=== PATIENT | female | born 1960 | race Caucasian/White ===

== ENCOUNTER 2018-07-06 08:24 | Emergency (ER) | payer OTHER, MEDICAID ==
--- NOTE | 2018-07-06 09:03 | EDPHY ---
HPI/HX/ROS/PE/MDM Narrative: CHIEF COMPLAINT: Difficulty swallowing HPI: The patient is a 57 y/o female with a history of infantile cerebral palsy, a goiter, colitis, and diabetes complaining of difficulty swallowing and pain in the goiter. This morning, she was unable eat cream of wheat for breakfast. She could swallow it but then would choke and spit it up. She is able to keep liquids down. She reports associated pain in the midline of the goiter. She denies any other associated symptoms. She has had similar episodes previously that resolved in a couple minutes. REVIEW OF SYSTEMS: Aside from elements discussed in the HPI, a comprehensive 10-point review of systems was reviewed and is negative. PMH: Infantile cerebral palsy, goiter, diabetes, scoliosis, osteoporosis, colitis SOCIAL HISTORY: Lives in [place], lives with her brother, brother at bedside PHYSICAL EXAM: General:Patient is alert, in no acute distress. ENT:Eyes are normal to inspection. ENT inspection normal. Neck: Large bilateral goiter. Full range of motion. Respiratory:No respiratory distress. Breath sounds normal bilaterally. Cardiovascular: Regular rate and rhythm. Strong peripheral pulses. Normal cap refill. Abdomen:The abdomen is nontender to palpation. There are no peritoneal signs. There are normal bowel sounds. Back: Normal to inspection. No tenderness to palpation. Skin: Normal color. No rash. Warm and dry. Extremities: Normal appearance. Full range of motion. Neuro: Oriented x3. Normal motor function. Normal sensory function. ED Course: Study: CT of the esophagus Indication: Inability to eat, large goiter Results: CT scan of the esophagus was obtained. The results of the study are: Large goiter compressing the esophagus, ascending aortic aneurysm The study was read by the radiologist, Dr. Santana. I viewed the images myself on the PACS system. The patient has a history of a goiter and presents with difficulty swallowing. She is able to swallow her food but chokes it back up. She is able to keep liquids down. She has associated pain in the midline of the goiter. Plan for CBC , basic metabolic panel, and CT of the neck. 11:00 AM - CT indicates the goiter is compressing the esophagus. She also has an ascending aortic aneurysm. I spoke with the family regarding the results of the imaging. Their family doctor has been following the goiter but no testing has been done on it previously. They were unaware of the aortic aneurysm. ENT paged to consult. 11:15 AM - I spoke with Shonna RICHARDSON, ENT. She will review the case and consult with Dr. Bansal regarding the treatment plan. 12:30 PM - Dr. Bansal spoke with the patient and her family. They will see him in his office tomorrow. She can safely return home at this time. Follow-up instructions and return precautions given. - Data Points Imaging Results: Imaging Impressions Neck CT 07/06/18 09:06 Impression: 1. Ascending aortic aneurysm. 2. Multinodular goiter causing esophageal compression at the thoracic inlet. Results called to Dr. Magen Mo at 11:00 AM General information for patients regarding this examination can be found at [email or web address] If you have questions or comments about this report, please contact me at (hospital) or [phone] (cell). Laboratory Results: Laboratory Results 07/06/18 09:10 07/06/18 09:10 07/06/18 07/06/18 09:10 09:10 WBC 11.00 10^3/uL H 10^3/uL (3.80-9.50) RBC 3.52 10^6/uL L 10^6/uL (4.18-5.33) Hgb 10.4 g/dL L g/dL (12.6-16.3) Hct 30.8 % L % (38.0-47.0) MCV 87.5 fL fL (81.5-99.8) MCH 29.5 pg pg (27.9-34.1) MCHC 33.8 g/dL g/dL (32.4-36.7) RDW 15.7 % H % (11.5-15.2) Plt Count 546 10^3/uL H 10^3/uL (150-400) MPV 8.8 fL fL (8.7-11.7) Neut % (Auto) 56.5 % % (39.3-74.2) Lymph % (Auto) 33.1 % % (15.0-45.0) Russell % (Auto) 9.5 % % (4.5-13.0) Eos % (Auto) 0.0 % L % (0.6-7.6) Baso % (Auto) 0.6 % % (0.3-1.7) Nucleat RBC Rel Count 0.0 % % (0.0-0.2) Absolute Neuts (auto) 6.21 10^3/uL 10^3/uL (1.70-6.50) Absolute Lymphs (auto) 3.64 10^3/uL H 10^3/uL (1.00-3.00) Absolute Monos (auto) 1.05 10^3/uL H 10^3/uL (0.30-0.80) Absolute Eos (auto) 0.00 10^3/uL L 10^3/uL (0.03-0.40) Absolute Basos (auto) 0.07 10^3/uL 10^3/uL (0.02-0.10) Absolute Nucleated RBC 0.00 10^3/uL 10^3/uL (0-0.01) Immature Gran % 0.3 % % (0.0-1.1) Immature Gran # 0.03 10^3/uL 10^3/uL (0.00-0.10) Sodium 137 mEq/L mEq/L (135-145) Potassium 4.6 mEq/L mEq/L (3.3-5.0) Chloride 104 mEq/L mEq/L (97-110) Carbon Dioxide 23 mEq/l mEq/l (22-31) Anion Gap 10 mEq/L mEq/L (6-14) BUN 11 mg/dL mg/dL (7-23) Creatinine 0.4 mg/dL L mg/dL (0.6-1.0) Estimated GFR > 60 Glucose 103 mg/dL H mg/dL (70-100) Calcium 8.7 mg/dL mg/dL (8.5-10.4) General Time Seen by Provider: 07/06/18 08:51 Initial Vital Signs: Initial Vital Signs Temperature (C) 36.7 C 07/06/18 08:34 Heart Rate 81 07/06/18 08:34 Respiratory Rate 16 07/06/18 08:34 Blood Pressure 129/88 H 07/06/18 08:34 O2 Sat (%) 97 07/06/18 08:34 O2 Delivery Mode Room Air Allergies/Adverse Reactions: codeine Allergy (Verified 07/06/18 08:31) Home Medications: Medication Instructions Recorded Citalopram 07/06/18 Clonazepam 07/06/18 Insulin Lispro 07/06/18 Januvia 50 mg 07/06/18 Metformin 1000 mg 07/06/18 Synthroid 07/06/18 Departure - Departure Disposition: Home, Routine, Self-Care Clinical Impression: goiter compressing esophagus, Goiter, Compression, esophagus, Ascending aortic aneurysm Condition: Good Instructions: Thoracic Aortic Aneurysm (ED), Thyroid Goiter (ED) Additional Instructions: 1. Please see Dr. Bansal at his office tomorrow as planned. 2. Return to the emergency department for any worsening of condition. Referrals: ALEXIS JENKINS [Other] - As per Instructions Magen Bansal MD [Medical Doctor] - As per Instructions Report Scribed for: Magen Mo Report Scribed by: Samantha Pedroza Date of Report: 07/06/18 Time of Report: 09:05 Physician Review and Approval Statement: Portions of this note were transcribed by an ED scribe. I personally performed the history, physical exam, and medical decision making; and confirm the accuracy of the information in the transcribed note.
[2018-07-06 09:17] LABS: PLATELET COUNT 546 10^3/uL (150-400)
[2018-07-06] MEDS ORDERED: IOPAMIDOL (ISOVUE-300) 100 ML BTL ONE (09:31)
[2018-07-06] MEDS ORDERED: DEXAMETHASONE 10 MG/ML VIAL IVP ONE (12:51)
[2018-07-06] MEDS ORDERED: DEXAMETHASONE 4 MG/ML VIAL ONE (13:01)
[2018-07-06 13:16] VITALS: BP 135/77
== END 2018-07-06 13:15 | disposition home or self-care (01) ==
DX: E04.2 Nontoxic multinodular goiter (principal); I71.2 Thoracic aortic aneurysm, without rupture; G80.9 Cerebral palsy, unspecified; E11.9 Type 2 diabetes mellitus without complications; Z79.899 Other long term (current) drug therapy
CPT/HCPCS: 70491; 96374; 99285; J1100; Q9967

== ENCOUNTER 2018-10-01 08:15 | Inpatient (IN) | payer OTHER, MEDICAID ==
[2018-10-23] MEDS ORDERED: DEXAMETHASONE 10 MG/ML VIAL IVP ONE (08:31)
[2018-10-23] MEDS ORDERED: ceFAZolin 2 GM/DEXTROSE 100 ML IV ONE (08:31)
[2018-10-23] MEDS ORDERED: LIDOCAINE 1% 2 ML INJ ID PRN (08:44)
[2018-10-23] MEDS ORDERED: LR 1,000 ML IV ONE (08:44)
--- NOTE | 2018-10-23 09:06 | POSTANESTH ---
Post Anesthetic Evaluation Cardiovascular Status: Normal, Stable Respiratory Status: Other, See Comment (Stridor initially that responded well to racemic epinephrine, SpO2 always > 92%) Level of Consciousness/Mental Status: Moderately Sleepy, Other, See Comment (Pt delayed.)
--- NOTE | 2018-10-23 09:10 | PDANEPAE ---
ANE History of Present Illness 57 yo female with goiter for total thyroidectomy. ANE Past Medical History - Cardiovascular History Hx Hypertension: No Hx Arrhythmias: No Hx Chest Pain: No Hx Coronary Artery / Peripheral Vascular Disease: No Hx CHF / Valvular Disease: No Hx Palpitations: No Cardiovascular History Comment: ascending aortic aneurysm - incidential finding on CT - Pulmonary History Hx COPD: No Hx Asthma/Reactive Airway Disease: No Hx Recent Upper Respiratory Infection: No Hx Oxygen in Use at Home: No Hx Sleep Apnea: No Sleep Apnea Screening Result - Last Documented: Negative - Neurologic History Hx Cerebrovascular Accident: No Hx Seizures: No Hx Dementia: No - Endocrine History Hx Diabetes: Yes Hypothyroid: Yes Hyperthyroid: No Obesity: no Endocrine History Comment: type 2 DM. multinodular goiter compressing esophagus - Renal History Hx Renal Disorders: No - Liver History Hx Hepatic Disorders: No - Neurological & Psychiatric Hx Hx Neurological and Psychiatric Disorders: Yes Neurological / Psychiatric History Comment: tremor. OCD. cerebral palsy/ developmental delay - Cancer History Hx Cancer: No - Congenital Disorder History Hx Congenital Disorders: Yes Congenital History Comment: thyroid issues - GI History GERD: moderate Hx Gastrointestinal Disorders: Yes Gastrointestinal History Comment: diahrrea - Other Health History Other Health History: osteoporosis. scoliosis. rash to inside of elbows - none currently. partial fixed denture - Chronic Pain History Chronic Pain: No - Surgical History Prior Surgeries: none in 5 yrs. hysterectomy 30yrs ago ANE Review of Systems Review of Systems: - Exercise capacity METS (RN): 2 METS - Systems Constitutional: Reports: other (URI 3 weeks ago, feels she has completely recovered) Cardiac: Reports: no symptoms Gastrointestinal: Reports: diarrhea (colitis - chronic) ANE Patient History - Allergies Allergies/Adverse Reactions: codeine Allergy (Verified 09/12/18 14:31) Unknown - Home Medications Home Medications: Citalopram [CeleXA] 20 mg PO DAILY 07/06/18 [Last Taken 10/22/18] Insulin Glargine [Lantus] 10 unit SC DAILY 07/06/18 [Last Taken 10/22/18] Levothyroxine [Synthroid 50 mcg (*)] 50 mcg PO DAILY06 07/06/18 [Last Taken ] clonazePAM [Klonopin (*)] 0.5 mg PO BID 07/06/18 [Last Taken 10/22/18] metFORMIN HCL [Glucophage 500 mg (*)] 500 mg PO BIDMEAL 07/06/18 [Last Taken ] sitaGLIPtin PHOSPHATE [Januvia 100 MG (*)] 100 mg PO DAILY 07/06/18 [Last Taken 10/22/18] Alendronate Sodium [Fosamax 70 MG (*)] 70 mg PO TU@0700 09/12/18 [Last Taken ] Ascorbic Acid [Vitamin C 500 mg (*)] 500 mg PO DAILY 09/12/18 [Last Taken ] Cholecalciferol Vit D3 [Vitamin D3 (*)] 1,000 units PO DAILY 09/12/18 [Last Taken 10/16/18] Ferrous Sulfate [Ferrous Sulf 325 MG (*)] 325 mg PO DAILY 09/12/18 [Last Taken 10/21/18] Insulin Aspart [novoLOG] 2 - 3 unit SC TIDMEAL 09/12/18 [Last Taken 10/22/18] Multivitamins [Multivitamin (*)] 1 each PO DAILY 09/12/18 [Last Taken 10/22/18] - NPO status NPO Since - Liquids (Date): 10/23/18 NPO Since - Liquids (Time): 07:00 (hot water) NPO Since - Solids (Date): 10/22/18 NPO Since - Solids (Time): 18:00 - Anes Hx Anes Hx: no prior problems - Smoking Hx Smoking Status: Never smoked - Family Anes Hx Family Anes Hx: neg - N/A Family Hx Anesthesia Complications: none ANE Labs/Vital Signs - Labs - CBC HGB: 11 HCT: 33 Platelet Count: 435 - Labs - BMP Sodium: 133 Potassium: 4.2 Chloride: 102 CO2: 24 Glucose: 193 BUN: 7 Creatinine: .5 - Vital Signs Blood Pressure: 143/89 Heart Rate: 91 Respiratory Rate: 18 O2 Sat (%): 95 Height: 147.32 cm Weight: 50.349 kg ANE Physical Exam - Airway Mallampati Score: Class 3 Mouth exam: small mouth opening - Pulmonary Pulmonary: expiratory wheeze (faint wheeze) - Cardiovascular Cardiovascular: regular rate and rhythym - ASA Status ASA Status: III ANE Anesthesia Plan Anesthesia Plan: general endotracheal anesthesia Specialized Airway: video laryngoscope
--- NOTE | 2018-10-23 09:31 | PDHPUP ---
History & Physical Update H&P update statement: This history and physical update is based on an assessment of the patient which was completed after admission or registration (within 24 hours), but prior to the surgery/procedure. H&P update: H&P reviewed & patient examined, no change in patient's condition since H&P completed (we will do a punch biopsy of the right nostril lesion )
[2018-10-23] MEDS ORDERED: ALBUTEROL 3 ML DEYVIAL IH ONE (09:49)
[2018-10-23] MEDS ORDERED: BACITRACIN ZINC 0.5 OZ OINTTUBE TP ONE (09:50)
[2018-10-23] MEDS ORDERED: LIDO/EPI 1% **Not for Epidural 20 ML MDV ONE (09:50)
[2018-10-23] MEDS ORDERED: OXYMETAZOLINE 30 ML NASAL SPRAY ONE (09:50)
[2018-10-23] MEDS ORDERED: ROCURONIUM 100 MG/10 ML VIAL ONE (10:02)
[2018-10-23] MEDS ORDERED: fentaNYL 100 MCG/2 ML INJ ONE (10:02)
[2018-10-23] MEDS ORDERED: LIDOCAINE 2% 5 ML SDV ONE (10:02)
[2018-10-23] MEDS ORDERED: PROPOFOL 200 MG/20 ML VIAL ONE ×2 (10:02)
[2018-10-23] MEDS ORDERED: DEXMEDETOMIDINE HCL 200 MCG/2 ML VIAL IV ONE (10:29)
[2018-10-23] MEDS ORDERED: PHENYLEPHRINE HCL 100 MCG/ML SYR ONE (11:06)
[2018-10-23] MEDS ORDERED: ONDANSETRON 4 MG/2 ML VIAL ONE (12:57)
[2018-10-23] MEDS ORDERED: PROMETHAZINE HCL 25 MG/ML INJ IVP PRN (13:10)
[2018-10-23] MEDS ORDERED: LR 500 ML IV PRN (13:10)
[2018-10-23] MEDS ORDERED: fentaNYL 100 MCG/2 ML INJ IVP PRN (13:10)
[2018-10-23] MEDS ORDERED: SUGAMMADEX SODIUM 200 MG/2 ML VIAL IVP ONE (13:10)
[2018-10-23] MEDS ORDERED: ALBUTEROL 3 ML DEYVIAL IH PRN (13:10)
[2018-10-23] MEDS ORDERED: oxyCODONE IR 5 MG TAB PO PRN (13:10)
[2018-10-23] MEDS ORDERED: NALOXONE HCL 0.4 MG/ML INJ IVP PRN (13:10)
[2018-10-23] MEDS ORDERED: ONDANSETRON 4 MG/2 ML VIAL IVP PRN (13:43)
[2018-10-23] MEDS ORDERED: HYDROCOD/APAP 7.5/325 IN 15ML UDCUP PO PRN (13:43)
[2018-10-23] MEDS ORDERED: EPINEPHrine RACEMIC INH 0.5 ML DEYVIAL IH ONE ×2 (13:43→13:44)
[2018-10-23] MEDS ORDERED: HYDROmorphONE/DILAUDID 1 MG/ML INJ IVP PRN (13:53)
[2018-10-23] MEDS ORDERED: INSULIN REGULAR HUMAN 100 UNIT/ML UNIT SC ONE (14:09)
[2018-10-23] MEDS ORDERED: INSULIN GLARGINE 100 UNITS/ML UNIT SC ONE (14:09)
[2018-10-23] MEDS ORDERED: INSULIN REGULAR HUMAN 100 UNIT/ML UNIT ONE (14:24)
[2018-10-23] MEDS ORDERED: CALCIUM GLUCONATE 50 ML IV ONE (15:47)
--- NOTE | 2018-10-23 15:58 | POSTOPPROG ---
Post Op Note Date of Operation: 10/23/18 Surgeon: Magen Bansal Petroleum Inspector Supervisor: Serge Corral Anesthesiologist: Jessie Tay Anesthesia: GET(General Endotracheal) Pre-op Diagnosis: Goiter, dysphagia, right nostril lesion Post-op Diagnosis: same Indication: enlarging goiter, onset dysphagia, nonhealing sore on right nostril Procedure: Total thyroidectomy, biopsy of right nostril Findings: very large goiter, [id number] Inf/Abcess present in the surg proc area at time of surgery?: No Depth: Organ Space EBL: 100-500 Complications: none Drains: Bentley Archer Specimen(s): 1. thyroid gland 2. right nostril biopsy
[2018-10-23] MEDS: D5W 1/2 NS W/ 20 KCl/L 1,000 ML IV SCH (16:34)
[2018-10-23] MEDS: DEXAMETHASONE 4 MG/ML VIAL IVP SCH ×2 (16:35→22:30)
[2018-10-23] MEDS ORDERED: PROTOCOL CALCIUM 1 DOSE IV PRN (18:04)
--- NOTE | 2018-10-23 18:27 | SOAPPROG ---
KHANG Progress Note Assessment/Plan: Assessment: The pt is doing very well at this point. Her initial calcium level was low enough that I felt we should give a dose of IV CA, and start her on oral calcium. I spoke at length with both her brother and Windy Temple, the RN caring for the patient. The brothre of the pt will manage the blood sugars with the assiatance of the RN. We will have her take oral calcium 4 times a day after discharge and for the next few weeks. We will increase her daily synthroid to 100mcg daily, from the current dose of 50mcg. Plan: Likely discharge in the am. Needs to take calcium and synthroid after discharge 10/23/18 18:23 Subjective: Pt ate a little food and has some pain this evening. She enjoyed watching her news show tonight. Objective: Vital Signs Temp Pulse Resp BP Pulse Ox 36.4 C 91 19 96/58 L 88 L 10/23/18 14:58 10/23/18 14:58 10/23/18 15:50 10/23/18 15:46 10/23/18 15:50 10/22/18 10/23/18 10/24/18 05:59 05:59 05:59 Intake Total 2500 Output Total 165 Balance 2335 Neck flat Voice a little raspy but clear. Pt denies tingling of the fingers of lips. labs show high blood Glu, and low Ca. She received a dose of IV calcium. ICD10 Worksheet Patient Problems: Problems Problem Status Onset Diabetes Acute Goiter Acute - ICD10 Problem Qualifiers (1) Goiter (2) Diabetes Qualifiers: Diabetes mellitus fpc insulin use: with computer terminal operator use Diabetes mellitus complication status: without complication
[2018-10-23] MEDS: metFORMIN HCL 500 MG TAB PO SCH (18:46)
--- NOTE | 2018-10-23 19:47 | GOP ---
[f rep st] OPERATIVE REPORT DATE OF OPERATION: 10/23/2018 SURGEON: Magen Bansal MD DATA COMPILER: Sheldon Corral. ANESTHESIA: General endotracheal anesthesia. ANESTHESIOLOGIST: Jessie Kirkpatrick MD. PREOPERATIVE DIAGNOSIS: 1. Thyroid goiter. 2. Right nostril lesion. POSTOPERATIVE DIAGNOSIS: 1. Thyroid goiter. 2. Right nostril lesion. PROCEDURE PERFORMED: 1. Total thyroidectomy. 2. Biopsy of right nostril lesion. FINDINGS: A very large goiter approximately 10 x 10 x 6 cm. Weight of over 400 g. The left superio r parathyroid gland was identified and preserved. I did not see the other 3 parathyroid glands. I c losely evaluated the gland after it was removed and found one small bit of tissue that could have bee n a parathyroid gland from the right side. This was removed, placed in water, it sank readily. This could have been either a parathyroid gland or a piece of thyroid tissue. It was reimplanted in the left sternocleidomastoid muscle. ESTIMATED BLOOD LOSS: 150 mL. INDICATIONS: The patient is a 57-year-old woman with a slowly enlarging goiter over decades. She nuñez s begun to have troubles with dysphagia and we are concerned that she could end up with not only dysp hagia, but potentially other compression problems as well. She also has a small nonhealing scabbing lesion on the right nostril. DESCRIPTION OF PROCEDURE: Patient was taken to the operating room, positively identified, placed on monitors and general endotracheal anesthesia was induced. The patient was prepped and draped in norm al sterile fashion. An incision was marked out across the anterior aspect of the neck from the anter ior border of the sternocleidomastoid on the right over to the left. This was infiltrated with 8 mL of 1% lidocaine with [id number] epinephrine. The skin was then sharply incised. Dissection was abril d down to the platysma. Care had to be taken to avoid the very engorged anterior jugular veins. The se were preserved. Superior and inferior subplatysmal flaps were then raised and secured with 2-0 si lk stay sutures. The strap muscles were quite attenuated because they had been so stretched out, but I was able to identify them and these were elevated off the thyroid gland bilaterally. Beginning on the right-hand side, I dissected down to the superior vascular pedicle, which was very high up in th e neck, actually at the level of the hyoid bone. I pushed away the soft tissue around it. I did not identify the superior laryngeal nerve on either side, but stayed close to the gland itself, right on the thyroid capsule and lifted the superior thyroid artery and veins away from the gland. These wer e then clamped, cut, and ligated with 2-0 silk stick sutures. Dissection was then swept along the ca psule laterally, tying off and cauterizing vessels as I went. The gland was slowly pulled medially a nd rotated toward the midline. The inferior vascular pedicle was isolated, clamped, cut, and ligated . An extension of the gland on both sides of the neck was found back where it extended behind the ca rotid sheath. This was gently elevated out. The recurrent laryngeal nerve was identified and the gl and was swept medially. The Paulino's ligament was divided and the gland was swept off the trachea and anterior aspect of the thyroid cartilage. Attention was then turned to the left side and the same procedure was done. In this case, we did vidya ntify the superior parathyroid gland, which was preserved with its vascular pedicle. At the end of t he procedure, it looked well perfused. The superior vascular pedicle was isolated, clamped, cut, and ligated. Dissection was swept along the capsule inferiorly, tying off vessels as we did on the righ t side. The gland rotated medially. The recurrent laryngeal nerve was identified. Paulino's ligament was divided. The gland was eventually pulled out of the neck. Hemostasis was assured. The wound was irrigated with warm saline. No signs of any other bleeding we re noted. I examined the gland closely and did find what I thought might be a parathyroid gland in t he capsule itself. This was deep to the capsule itself. This was dissected out, placed in water, it sank readily. I am not sure whether this is due to the fact that it might be parathyroid tissue or potentially thyroid tissue. However, since this is not a malignant process, the small piece of tissu e which is shaped in the same size as the identified parathyroid gland was placed in a pocket in the right SCM. A 10-Danish drain was placed through a separate stab incision, and secured with a drain stitch. The incision was then closed with interrupted 3-0 Vicryl suture followed by 4-0 Monocryl and 5-0 Prolene and a pressure dressing. At this point, attention was turned to the right nostril. A small amount of lidocaine was injected i nto the nostril. A 3 mm punch biopsy was performed and the specimen sent for pathologic evaluation. A single stitch was placed to reapproximate the wound edges. Bacitracin was placed on the nostril a nd the case was terminated and the anesthetic discontinued. The patient was extubated and taken to [facility] postop care unit in good condition. She did have some inspiratory stridor. This, in combination with her diabetes and her developmental delay issues, led me to feel it was safest to place her in e step-down unit overnight. SECOND DATA COMPILER: DEBRA Dodge. COMPLICATIONS: None. DRAINS: 10-Danish Bentley-Archer drain. /[id number]/MODL
[2018-10-23] MEDS ORDERED: CALCIUM CARBONATE 500 MG CHEWABLE TAB PO SCH (22:00)
[2018-10-24] MEDS ORDERED: CALCIUM GLUCONATE 50 ML IV ONE ×5 (00:29→17:30)
[2018-10-24] MEDS ORDERED: CALCIUM GLUCONATE 1 GM in D5W 50 ML IV ONE ×2 (06:15→08:30)
[2018-10-24] MEDS: D5W 1/2 NS W/ 20 KCl/L 1,000 ML IV SCH (06:43)
[2018-10-24] MEDS: DEXAMETHASONE 4 MG/ML VIAL IVP SCH ×3 (06:44→21:40)
[2018-10-24] MEDS: CALCIUM CARBONATE 500 MG CHEWABLE TAB PO SCH ×3 (08:14→21:40)
[2018-10-24] MEDS: metFORMIN HCL 500 MG TAB PO SCH ×2 (08:14→18:49)
[2018-10-24] MEDS: CALCITRIOL 0.25 MCG CAP PO SCH ×3 (08:14→21:40)
[2018-10-24] MEDS ORDERED: PNEUMOCOCCAL 0.5ML VACCINE VIAL (PNEUMOVAX 23) IM ONE ×2 (08:27→19:00)
[2018-10-24] MEDS: INSULIN GLARGINE 100 UNITS/ML UNIT SC SCH (10:23)
[2018-10-24 11:26] LABS: PLATELET COUNT 376 10^3/uL (150-400)
[2018-10-24] MEDS ORDERED: CALCIUM GLUCONATE 2 GM in D5W 50 ML IV ONE (11:54)
[2018-10-24] MEDS ORDERED: PROTOCOL POTASSIUM 1 DOSE MISC PRN (12:48)
[2018-10-24] MEDS ORDERED: PROTOCOL MAGNESIUM 1 DOSE IV PRN (12:48)
[2018-10-24] MEDS ORDERED: MAGNESIUM SULF 2 GM/WATER 50 ML IV ONE (13:02)
[2018-10-24] MEDS ORDERED: NS W/ 20 KCl/L 1,000 ML IV SCH (16:45)
--- NOTE | 2018-10-24 16:58 | SOAPPROG ---
SOAP Progress Note Assessment/Plan: Assessment: Pt POD #1 s/p total thyroidectomy. Pain controlled. Voice strong. Pt doing well. PAVEL drain output minimum Drain removed, incision c/d/i Dressing replaced Calcium has been running low. We will continue to treat as needed. She will need to stay one more night. Dr. Bansal will see pt tomorrow. Plan reviewed with Dr. Bansal Plan: 10/24/18 16:55 Objective: Vital Signs Temp Pulse Resp BP Pulse Ox 36.4 C 87 16 118/59 L 90 L 10/24/18 16:00 10/24/18 16:00 10/24/18 16:00 10/24/18 16:00 10/24/18 16:00 Laboratory Results 10/24/18 11:20 10/24/18 11:20 10/23/18 10/24/18 10/25/18 05:59 05:59 05:59 Intake Total 3573 Output Total 190 Balance 3383 ICD10 Worksheet Patient Problems: Problems Problem Status Onset Diabetes Acute Goiter Acute
--- NOTE | 2018-10-24 23:07 | PDMN ---
Medical Necessity Medical necessity: Pt meets IP criteria as of 10/24/2018 per and [facility] [id number] ( thyroidectomy); los > 2 mn as pt with low calcium s/p thyroidectomy; requiring further monitoring, calcium replacement and serial labs. I have informed Dr. Bansal who will call patient as well as adjuster and inspector.
--- NOTE | 2018-10-25 03:24 | GCON ---
[f rep st] CONSULTATION CRITICAL CARE CONSULTATION DATE OF CONSULTATION: 10/24/2018 REASON FOR CONSULTATION: Intensive care unit evaluation and medical management of hypocalcemia and e lectrolyte abnormalities following a thyroidectomy. HISTORY: The patient is a very pleasant 57-year-old with underlying cerebral palsy. She had a large goiter, which was surgically removed yesterday by Dr. Bansal. The goiter was quite large. The l eft superior parathyroid gland was identified and preserved. The other 3 parathyroid glands could no t be identified and presumably were resected along with the thyroid. One possible piece of parathyro id tissue was reimplanted in the left sternocleidomastoid muscle. Estimated blood loss was 150 mL. She was returned to the intensive care unit in stable condition. Calcium has been followed and has b een low with checks and replacement approximately q.6 hours. Magnesium has been found to be low as w ell. Clinically, the patient is doing well. She has no complaints. She denies shortness of breath, neck pain, or other problems. She is on D5W with half-normal saline, calcium carbonate orally 1.5 mg t.i. d., calcitriol t.i.d. at 0.25 mcg, and dexamethasone. PAST MEDICAL HISTORY: The patient has a history of cerebral palsy with associated disabilities. The re is a history of insulin-dependent diabetes, seizure disorder, osteoporosis, hearing loss, and gout . ALLERGIES: She is allergic to codeine. PAST SURGICAL HISTORY: Remarkable for tonsillectomy, adenoidectomy, and hysterectomy. MEDICATIONS: On admission included Januvia, Celexa, Klonopin b.i.d., Synthroid 50 mcg per day, Fosam ax, metformin, iron, Lantus, and NovoLog insulin. SOCIAL HISTORY: Disabled. Very supportive family. Alcohol and tobacco are negative. FAMILY HISTORY: Noncontributory. REVIEW OF SYSTEMS: No history of heart or lung disease or thromboembolic disease. A 10-point review of systems was otherwise negative. PHYSICAL EXAMINATION: GENERAL: Reveals a very pleasant woman who is sitting comfortably in bed. PRESTON SIGNS: An OxyMask is in place at 1-2 L with saturations of 98%. Blood pressure is 110/60, heart rate 95 with sinus rhythm on the monitor, respiratory rate is 16. She is afebrile. HEENT: Remarka ble for a soft collar being in place. This was not removed or taken down. CHEST: clear bilaterally . Scoliosis is noted. HEART: Regular in rate and rhythm. There is a soft systolic murmur present. No gallop. ABDOMEN: Soft, nontender. Bowel sounds are present. : No Celestin catheter is in edna ce. EXTREMITIES: Unremarkable for significant edema, cords, or tenderness. NEUROLOGIC: Nonfocal. She has been ambulatory in the halls. Mental status is intact. DATABASE: White blood cell count is 16,000, hematocrit 28.8, platelets are normal. Sodium is 129, p otassium 4.3, BUN 9 with creatinine of 0.5. Glucoses are elevated between 300 and 370 range. Serial calciums have been low with ionized calcium of 1.16 on last check. Magnesium is 0.8, phosphorus 5.4 . ASSESSMENT: 1. Status post thyroidectomy of a large thyroid goiter. 2. Surgical hypoparathyroidism. One parathyroid gland was preserved, possibly another. The patient is hypocalcemic postoperatively. This may be quite transient or may be more permanent. She is on c alcium supplementation orally along with calcitriol. She is being given p.r.n. IV calcium based on s erial calcium levels. Clinically, she is doing well. 3. Hypomagnesemia. Magnesium replacement will be initiated. 4. Hyponatremia. Half-normal saline will be changed to normal saline and sodium followed. If neede d, she can be placed on a fluid restriction and/or salt tablets. Sodium a month ago was 133. She ma y have a component of syndrome of inappropriate secretion of antidiuretic hormone. 5. Insulin-dependent diabetes. On insulin coverage. This is being managed by the patient's family per their request. Glucoses in general are running high. There is no evidence of diabetic ketoacido sis at this point. 6. History of other medical problems as outlined above. PLAN AND RECOMMENDATIONS: Patient will be kept in the intensive care unit on step-down. Calcium fay l be followed closely. Other electrolytes will be followed as well. Electrolyte replacement protoco ls will be continued. PTH level will be obtained in the a.m. Intravenous fluids will be changed to normal saline with potassium. Dextrose will be removed. Further plans and recommendations will be made based on her progress over the next 12-24 hours. /[id number]/MODL
[2018-10-25 06:02] LABS: PLATELET COUNT 365 10^3/uL (150-400)
[2018-10-25] MEDS: DEXAMETHASONE 4 MG/ML VIAL IVP SCH (06:08)
[2018-10-25 07:39] VITALS: BP 141/77
[2018-10-25] MEDS ORDERED: CALCIUM GLUCONATE 2 GM in NS 50 ML IV ONE (07:43)
[2018-10-25] MEDS ORDERED: MAGNESIUM SULF 2 GM/WATER 50 ML IV ONE (07:43)
[2018-10-25] MEDS: metFORMIN HCL 500 MG TAB PO SCH (07:51)
[2018-10-25] MEDS: CALCITRIOL 0.25 MCG CAP PO SCH (07:51)
[2018-10-25] MEDS: CALCIUM CARBONATE 500 MG CHEWABLE TAB PO SCH (07:51)
[2018-10-25] MEDS: INSULIN GLARGINE 100 UNITS/ML UNIT SC SCH (08:09)
--- NOTE | 2018-10-25 09:44 | SOAPPROG ---
SOAP Progress Note Assessment/Plan: Assessment: Today the calcium and mag are both low. No sxs of the low calcium Neck looks great We will stop the decadrom Possible discharge this afternoon Plan: Likely discharge in the am. Needs to take calcium and synthroid after discharge 10/23/18 18:23 10/25/18 09:43 Subjective: Pt eager to go home. Denies sxs of low calcium. Objective: Vital Signs Temp Pulse Resp BP Pulse Ox 36.6 C 80 16 141/77 H 95 10/25/18 07:38 10/25/18 07:38 10/25/18 07:38 10/25/18 07:38 10/25/18 07:38 Laboratory Results 10/25/18 05:44 10/25/18 05:44 10/24/18 10/25/18 10/26/18 05:59 05:59 05:59 Intake Total 3573 890 Output Total 190 5 Balance 3383 885 Neck is flat and the incision looks great. Negative Svosteks sign. Calcium 1.06 Mag 1.1 - Pending Discharge Pending Discharge Within 24 Hours: Yes Pending Discharge Date: 10/26/18 Pending Discharge Time: 11:00 ICD10 Worksheet Patient Problems: Problems Problem Status Onset Diabetes Acute Goiter Acute - ICD10 Problem Qualifiers (1) Goiter (2) Diabetes Qualifiers: Diabetes mellitus long term care administrator insulin use: with long term care administrator use Diabetes mellitus complication status: without complication
--- NOTE | 2018-10-25 13:13 | PDINTPN ---
Voice Systems Engineer Progress Note Assessment/Plan: Assessment: Plan: Objective: Vital Signs Temp Pulse Resp BP Pulse Ox 36.6 C 80 16 141/77 H 95 10/25/18 07:38 10/25/18 07:38 10/25/18 07:38 10/25/18 07:38 10/25/18 07:38 Laboratory Results 10/25/18 05:44 10/25/18 12:00 10/24/18 10/25/18 10/26/18 05:59 05:59 05:59 Intake Total 4523 890 Output Total 190 5 Balance 2223 881 ICD10 Worksheet Patient Problems: Problems Problem Status Onset Goiter Acute Diabetes Acute
--- NOTE | 2018-10-25 16:31 | ASMTLACE ---
LACE Length of stay for Answers: 1 day current admission Acuity / Level of Answers: Yes Care: Did the patient have an inpatient admission? Comorbidities - select Answers: Diabetes (uncontrolled or all that apply controlled) Other Notes: Hypothyroid; Cerebral palsy; Developmental delay # of Emergency department Answers: 1-2 visits in the last 6 months Score: 7 Date Signed: 10/25/2018 04:31 PM Electronically Signed By:Angela Desai RN
--- NOTE | 2018-10-25 16:43 | ASDISCHSUM ---
Discharge Information Plan Status:Home with No Needs Medically Cleared to Leave:10/24/2018 Discharge Date:10/25/2018 01:40 PM CM D/C Disposition:Home, Routine, Self-Care ADT D/C Disposition:Home, Routine, Self-Care Projected Discharge Date:10/25/2018 01:40 PM Transportation at D/C:Family Discharge Delay Reason: Follow-Up Date:10/25/2018 01:40 PM Discharge Slot:2 - 12:01 pm - 18:00 pm Final Diagnosis:Thyroid goiter, right nostril lesion, s/p total thyroidectomy, bx of lesion Placement Information Patient Contact Information Contact Name:BRENNAN Relationship: Address:[address] Work Phone: [facility] [facility] Phone: [facility]/Zip Code:[place] [address] Email: Financial Information Financial Class:Medicare Primary Plan Desc:MEDICARE OUTPATIENT Primary Plan Number:[id number] Secondary Plan Desc:MEDICAID [place] Secondary Plan Number:[id number] Assessment Information LACE LACE Length of stay for Answers: 1 day current admission Acuity / Level of Answers: Yes Care: Did the patient have an inpatient admission? Comorbidities - select Answers: Diabetes (uncontrolled or all that apply controlled) Other Notes: Hypothyroid; Cerebral palsy; Developmental delay # of Emergency department Answers: 1-2 visits in the last 6 months Score: 7 Date Signed: 10/25/2018 04:31 PM Electronically Signed By:Angela Desai RN [facility] CM Progress Note CM Note CM Note Notes: Reviewed chart. Pt admitted for a planned total thyroidectomy and bx of nostril lesion. History includes thyroid goiter, DM, gout, epilepsy with seizures, osteoporosis. Pt is single and lives in [place]. Per MD notes, pt to discharge home independently today with no identified needs. No IM signed, admission < 48 hrs. Pt to follow up as directed. CM available for any further issues or concerns. Discharge Plan: Home independently Date Signed: 10/25/2018 04:42 PM Electronically Signed By:Angela Desai RN Intervention Information
[2018-10-25] MEDS ORDERED: Insulin Aspart [Novolog] SC SCH (18:00)
[2018-10-25] MEDS ORDERED: clonazePAM 0.5 MG TAB PO SCH (21:00)
[2018-10-26] MEDS ORDERED: LEVOTHYROXINE 100 MCG TAB PO SCH (06:00)
[2018-10-26] MEDS ORDERED: FERROUS SULFATE 325 MG TAB PO SCH (09:00)
[2018-10-26] MEDS ORDERED: MULTIVITAMINS 1 EACH TAB PO SCH (09:00)
[2018-10-26] MEDS ORDERED: CHOLECALCIFEROL VIT D3 1,000 UNITS TAB PO SCH (09:00)
[2018-10-26] MEDS ORDERED: ASCORBIC ACID 500 MG TAB PO SCH (09:00)
[2018-10-26] MEDS ORDERED: CITALOPRAM 20 MG TAB PO SCH (09:00)
[2018-10-26] MEDS ORDERED: CALCITRIOL 0.25 MCG CAP PO SCH (09:00)
[2018-10-28] MEDS ORDERED: ALENDRONATE SODIUM 70 MG TAB PO SCH (07:00)
--- NOTE | 2018-11-13 19:12 | GDS ---
[f rep st] DISCHARGE SUMMARY PRINCIPAL DIAGNOSIS: Thyroid goiter. SECONDARY DIAGNOSES: Hypoparathyroidism and hypocalcemia. HISTORY: The patient was brought to the hospital on October 23, where she underwent excision of a massive thyroid goiter. Postoperatively, she had issues with low calcium and magnesium. She was kep t in the hospital until October 25, when we were able to get control of her calcium levels and disc harge her home on oral calcium. DISCHARGE DIET: Regular. DISCHARGE MEDICATIONS: Patient is to take her regular home medications including levothyroxine, clon azepam, Januvia, Glucophage, Celexa, Lantus, ferrous sulfate, vitamin D, vitamin C, multivitamin, Fos amax, NovoLog. Specific to our hospitalization, we added in calcitriol 1 mcg per day and calcium 100 0 mg three times daily. Follow up in 1 week. /[id number]/MODL
== END 2018-10-25 13:40 | disposition home or self-care (01) | DRG 626 ==
LOC: F3N 10-23 08:18 → F2N 10-23 14:38 → OBSVTOIN 10-23 23:00
PROVIDERS: ADMIT Otolaryngology; ATTEND Otolaryngology
DX: E04.9 Nontoxic goiter, unspecified (principal); E06.3 Autoimmune thyroiditis; C44.311 Basal cell carcinoma of skin of nose; E89.2 Postprocedural hypoparathyroidism; G80.9 Cerebral palsy, unspecified; E83.42 Hypomagnesemia; E87.1 Hypo-osmolality and hyponatremia; E11.9 Type 2 diabetes mellitus without complications; M81.0 Age-related osteoporosis without current pathological fracture; M10.9 Gout, unspecified; G40.909 Epilepsy, unspecified, not intractable, without status epilepticus; Z79.4 Long term (current) use of insulin; Z96.41 Presence of insulin pump (external) (internal); Z23 Encounter for immunization
CPT/HCPCS: 82397-90; G0009; J0610; J0690; J1100; J1815; J2370; J2405; J2704; J3010; J3475; J7613